=== PATIENT | male | born 1980 | race Caucasian/White ===

== ENCOUNTER 2017-05-03 11:35 | Emergency (ER) | payer OTHER ==
[~2017-05-03] VITALS: Ht 182.9 cm; Wt 97.5 kg
[2017-05-03] MEDS ORDERED: TIZANIDINE HCL4 MG PO (12:33)
== END 2017-05-03 12:48 | disposition home or self-care (01) ==
LOC: ER 11:35
DX: S20.229A Contusion of unspecified back wall of thorax, initial encounter (principal); S29.012A Strain of muscle and tendon of back wall of thorax, initial encounter; F17.210 Nicotine dependence, cigarettes, uncomplicated; V43.02XA Car driver injured in collision with other type car in nontraffic accident, initial encounter; Y93.89 Activity, other specified; Y92.89 Other specified places as the place of occurrence of the external cause; Y99.8 Other external cause status